=== PATIENT | male | born 1940 | race Caucasian/White ===

== ENCOUNTER 2025-04-15 16:57 | Inpatient (IN) | payer BC ==
[2025-04-15] MEDS ORDERED: VANCOMYCIN HCL 1,500 MG in DEXTROSE 5%-WATER - 500 ML IVPB ONE (17:14)
[2025-04-15] MEDS ORDERED: ACETAMINOPHEN INJECTION 100 ML ONE (17:28)
[2025-04-15] MEDS ORDERED: PIPERACILLIN/TAZOB 4.5 GM 4.5 GM/100 ML BAG IVPB ONE (17:28)
[2025-04-15 17:32] LABS: ABSOLUTE IMMATURE GRANULOCYTES 0.11 x10^3/uL (0.0-0.031); BASOPHILS # 0.04 x10^3/uL (0.01-0.08); EOSINOPHIL % 0.3 % (0.8-7.0); EOSINOPHILS # 0.04 x10^3/uL (0.04-0.54); HEMOGLOBIN 15.1 g/dL (13.7-17.5); MCHC 32.8 g/dl (32.3-36.5); MEAN CELL VOLUME 92.4 fl (79.0-92.2); MEAN PLT VOLUME 11.7 fl (9.4-12.4); MONOCYTE # 0.24 x10^3/uL (0.30-0.82); MONOCYTE % 1.6 % (5.3-12.2); PLATELET COUNT 154 x10^3/uL (163-337); RDW 13.6 % (12.6-16.6)
[2025-04-15 17:40] LABS: INR 1.14 (0.83-1.09); PROTHROMBIN TIME (PATIENT) 12.4 SEC (9.7-13.0)
[2025-04-15 17:42] LABS: ACTIVATED PTT 28.8 SECONDS (25.2-36.5)
[2025-04-15] MEDS: LACTATED RINGERS SOLUTION 1000 ML INFUS.BAG IV ONE ×2 (17:44→18:40)
[2025-04-15 17:46] LABS: VENOUS BASE EXCESS -2.2 mmol/L (-2-2); VENOUS O2 SATURATION 73.9 % (70-80); VENOUS PCO2 33.7 mmHg (38-52); VENOUS PH 7.419 (7.310-7.410)
[2025-04-15] MEDS: ACETAMINOPHEN 1000 MG/100 ML BAG IVPB ONE (17:46)
[2025-04-15] MEDS: PIPERACILLIN/TAZOB 4.5 GM 4.5 GM in DEXTROSE 5%-WATER 100 ML IVPB ONE (17:47)
[2025-04-15 17:51] LABS: CHLORIDE 99 mmol/L (98-107); POTASSIUM 4.7 mmol/L (3.5-5.1); SODIUM 134 mmol/L (136-145)
[2025-04-15 17:53] LABS: ALBUMIN 3.5 g/dl (3.4-5.0); ANION GAP 12 mmol/L (4-13); CALCIUM 10.4 mg/dL (8.5-10.1); CO2 23 mmol/L (21-32)
[2025-04-15 17:54] LABS: BLOOD UREA NITROGEN 32.4 mg/dL (7-18)
[2025-04-15 17:57] LABS: CREATININE 1.7 mg/dL (0.55-1.3); SGOT/AST 19 U/L (15-37)
[2025-04-15 17:58] LABS: BILIRUBIN,TOTAL 1.2 mg/dL (0.2-1); TOT PROT 7.3 g/dl (6.4-8.2)
[2025-04-15 18:00] LABS: ALK PHOS 68 U/L (45-117)
[2025-04-15 18:04] LABS: GLUCOSE,RANDOM 445 mg/dL (74-106)
[2025-04-15 18:05] LABS: SGPT/ALT 32 U/L (13-61)
[2025-04-15] MEDS: VANCOMYCIN HCL IN 5 % DEXTROSE 1,500 MG/300 ML BAG IVPB ONE (18:05)
[2025-04-15 18:11] LABS: EPI CELLS 32 /uL (0-25.1); HYALINE CASTS 1 /uL (0-3.1); PH,URINE 5.5 (5.0-8.0); URINE APPEARANCE TURBID; URINE BACTERIA >9,000 /uL (0-1359); URINE BILIRUBIN NEGATIVE (NEGATIVE); URINE COLOR YELLOW; URINE GLUCOSE (UA) 3+ (NEGATIVE); URINE KETONE NEGATIVE (NEGATIVE); URINE LEUK ESTERASE 3+ (NEGATIVE); URINE NITRITE NEGATIVE (NEGATIVE); URINE PROTEIN 1+ (NEGATIVE); URINE UROBILINOGEN 0.2 mg/dL (0.2-1.0); URINE WBC 18869 /uL (0-25.8)
[2025-04-15 18:38] LABS: LACTIC ACID 3.4 mmol/L (0.4-2.0)
[2025-04-15 18:45] LABS: MAGNESIUM 1.5 mg/dL (1.8-2.4)
[2025-04-15] MEDS ORDERED: AZITHROMYCIN IVPB 500 MG/250 ML BAG IVPB ONE (18:51)
[2025-04-15] MEDS: AZITHROMYCIN IVPB 500 MG in DEXTROSE 5%-WATER - 250 ML IVPB ONE (18:52)
[2025-04-15] MEDS: INSULIN ASPART SLIDING SCALE (NOVOLOG) 1 VIAL SQ ONE (19:03)
[2025-04-15] MEDS: SODIUM CHLORIDE 0.9% 500 ML INFUS.BAG IV ONE (19:03)
[2025-04-15 19:27] LABS: CHLORIDE 100 mmol/L (98-107); POTASSIUM 4.2 mmol/L (3.5-5.1); SODIUM 135 mmol/L (136-145)
[2025-04-15 19:28] LABS: CALCIUM 9.6 mg/dL (8.5-10.1)
[2025-04-15 19:29] LABS: ANION GAP 12 mmol/L (4-13); BLOOD UREA NITROGEN 28.7 mg/dL (7-18); CO2 23 mmol/L (21-32)
[2025-04-15 19:32] LABS: CREATININE 1.5 mg/dL (0.55-1.3)
[2025-04-15 19:33] LABS: GLUCOSE,RANDOM 421 mg/dL (74-106)
[2025-04-15 19:39] LABS: YEAST NOT SEEN (NEGATIVE)
[2025-04-15 19:55] LABS: LACTIC ACID 4.5 mmol/L (0.4-2.0)
[2025-04-15] MEDS ORDERED: ACETAMINOPHEN 325 MG TABLET (FP) PO PRN (20:46)
[2025-04-15] MEDS ORDERED: INSULIN ASPART SLIDING SCALE (NOVOLOG) 1 VIAL SQ ONE (21:00)
[2025-04-15] MEDS ORDERED: ATORVASTATIN CA 40 MG TABLET (FP) ONE (21:03)
[2025-04-15] MEDS ORDERED: INSULIN GLARGINE (LANTUS) 100 UNITS/ML UNITS SQ ONE (21:03)
[2025-04-15] MEDS ORDERED: HEPARIN NA (PORCINE) 5,000 UNITS/ML 1ML VIAL ONE (21:03)
[2025-04-15] MEDS: SODIUM CHLORIDE 1,000 ML IV SCH (21:18)
[2025-04-15] MEDS: INSULIN (NOVOLOG) ASPART 100 UNITS/ML 10ML VIAL SQ ONE (21:18)
[2025-04-15] MEDS: SODIUM CHLORIDE 0.9% 1000 ML INFUS.BAG IV ONE (21:18)
[2025-04-15] MEDS: HEPARIN NA (PORCINE) 5,000 UNITS/ML 1ML VIAL SQ SCH (21:18)
[2025-04-15] MEDS: INSULIN GLARGINE (LANTUS) 100 UNITS/ML UNITS SQ SCH (21:19)
[2025-04-15] MEDS: ATORVASTATIN CA 40 MG TABLET (FP) PO SCH (21:19)
[2025-04-16 02:17] VITALS: BMI 25.2
[2025-04-16] MEDS: INSULIN ASPART SLIDING SCALE (NOVOLOG) 1 VIAL SQ SCH (06:17)
[2025-04-16] MEDS: INSULIN (NOVOLOG) ASPART 100 UNITS/ML 10ML VIAL SQ SCH (06:19)
[2025-04-16 07:42] LABS: HEMOGLOBIN 12.8 g/dL (13.7-17.5); MCHC 32.8 g/dl (32.3-36.5); MEAN CELL VOLUME 93.3 fl (79.0-92.2); MEAN PLT VOLUME 12.5 fl (9.4-12.4); PLATELET COUNT 132 x10^3/uL (163-337); RDW 13.9 % (12.6-16.6)
[2025-04-16 08:43] LABS: ALBUMIN 2.8 g/dl (3.4-5.0); BILIRUBIN,TOTAL 1.2 mg/dL (0.2-1); BLOOD UREA NITROGEN 27.8 mg/dL (7-18); CALCIUM 8.9 mg/dL (8.5-10.1); N-TERMINAL BNP 1778.6 pg/ml (5-450); TOT PROT 5.9 g/dl (6.4-8.2)
[2025-04-16] MEDS: amLODIPine BESYLATE 10 MG TABLET (FP) PO SCH (09:34)
[2025-04-16] MEDS: CEFTRIAXONE 1 GM in DEXTROSE 5%-WATER - 50 ML IVPB SCH (09:34)
[2025-04-16] MEDS: ASPIRIN COATED 81 MG TABLET.EC PO SCH (09:34)
[2025-04-16] MEDS: TAMSULOSIN HCL 0.4 MG CAP PO SCH (09:34)
[2025-04-16] MEDS: CITALOPRAM HYDROBROMIDE 20 MG TABLET PO SCH (09:34)
[2025-04-16] MEDS ORDERED: CEFTRIAXONE 1,000 GM in DEXTROSE 5%-WATER - 50 ML IVPB SCH (10:00)
[2025-04-17 07:53] LABS: HEMOGLOBIN 13.5 g/dL (13.7-17.5); MCHC 32.1 g/dl (32.3-36.5); MEAN PLT VOLUME 11.9 fl (9.4-12.4); PLATELET COUNT 131 x10^3/uL (163-337); RDW 13.9 % (12.6-16.6)
[2025-04-17 08:18] LABS: POTASSIUM 4.1 mmol/L (3.5-5.1)
[2025-04-17 08:31] LABS: CALCIUM 9.9 mg/dL (8.5-10.1)
[2025-04-17 08:32] LABS: BLOOD UREA NITROGEN 19.3 mg/dL (7-18)
[2025-04-17 08:34] LABS: CREATININE 0.9 mg/dL (0.55-1.3)
[2025-04-17 08:35] LABS: BILIRUBIN,TOTAL 0.8 mg/dL (0.2-1); TOT PROT 6.5 g/dl (6.4-8.2)
[2025-04-17 12:03] VITALS: RESP 18; TEMP 98.1
[2025-04-17 15:33] VITALS: BP 125/71; PULSE 84
== END 2025-04-17 18:12 | disposition home or self-care (01) | DRG 872 ==
LOC: JER 16:57 → JERBED 18:22 → J4W 04-16 01:14
PROVIDERS: ADMIT Hospitalist; ATTEND Internal Medicine
DX: A41.51 Sepsis due to Escherichia coli [E. coli] (principal); N39.0 Urinary tract infection, site not specified; I24.89 Other forms of acute ischemic heart disease; E78.5 Hyperlipidemia, unspecified; E11.65 Type 2 diabetes mellitus with hyperglycemia; I10 Essential (primary) hypertension; N40.0 Benign prostatic hyperplasia without lower urinary tract symptoms; F32.A Depression, unspecified; R55 Syncope and collapse; E11.649 Type 2 diabetes mellitus with hypoglycemia without coma
CPT/HCPCS: 0241U-QW; 36415; 70450-TC; 71045-TC-FY; 72125-TC; 72170-TC-FY; 80048; 80053; 81003; 82010; 82803; 82962; 83036; 83605; 83735; 83880; 84484; 85025; 85027; 85610; 85730; 86850; 86900; 86901; 87040; 87086; 87899; 93005; 93010; 93306-TC; 97116-GP; 97161-GP; 99291